=== PATIENT | female | born 1995 | race Caucasian/White ===

== ENCOUNTER 2020-02-01 20:12 | Day surgery (SDC) | payer BC ==
[2020-02-01 20:50] VITALS: BMI 36.3
[2020-02-01] MEDS ORDERED: hydrALAZINE 20 MG/ML VIAL SLOW IVP PRN (20:57)
[2020-02-01 21:19] LABS: Amnisure Test No Membranes Rupture (No Rupture)
[2020-02-01 21:20] LABS: Amnisure Internal Control QC ACCEPTABLE (ACCEPTABLE)
--- NOTE | 2020-02-01 21:26 | PDOC.BPN ---
- Brief Progress Note was negative
[2020-02-01 21:28] LABS: Hemoglobin 11.4 g/dL (12.0-16.0); Mean Corpuscular HGB CONC 33.5 g/dL (32.0-36.0); Mean Corpuscular Volume 86.4 fL (78.0-98.0); Mean Platelet Volume 8.7 fL (7.4-10.4); Platelet Count 212 thou/uL (130-400); RBC Distribution Width 12.2 % (11.5-14.5); Red Blood Cell (RBC) Count 3.94 mill/uL (4.20-5.40)
[2020-02-01 21:53] LABS: ALT (SGPT) 22 U/L (8-55); AST (SGOT) 21 U/L (5-34); Albumin 3.6 g/dL (3.5-5.0); Alkaline Phosphatase 144 U/L (40-110); Anion Gap 13 mmol/L (10-20); BUN (Urea Nitrogen) 5 mg/dL (7.0-18.7); Bilirubin, Total 0.2 mg/dL (0.2-1.2); Calc. Creatinine Clearance 227 mL/min (70-130); Calcium 9.1 mg/dL (7.8-10.44); Carbon Dioxide 23 mmol/L (22-29); Chloride 104 mmol/L (98-107); Estimated GFR-MDRD Greater than 90; Globulin 3.2 g/dL (2.4-3.5); Glucose 74 mg/dL (70-105); Potassium 3.5 mmol/L (3.5-5.1); Protein, Total 6.8 g/dL (6.0-8.3); Sodium 136 mmol/L (136-145)
--- NOTE | 2020-02-01 22:16 | HP ---
TIME OF EVALUATION: Roughly 21:05. LOCATION: Triage bed A. REASON FOR EVALUATION: Possible leakage of fluid versus other, ex-patient of Dr. Smatr. HISTORY OF PRESENT ILLNESS: In brief, this is a 24-year-old G1 at 34 weeks and 5 days with an EDC of March 11, 2020, who is here for possible "leakage of fluid" at about 10:30 this morning when she had a little bit of moisture on her underwear. She denies gush of fluid or persistent leakage. She also has good movement and denies vaginal bleeding or contractions. REVIEW OF SYSTEMS: Obtained prior to my visit by RN interview: Negative for fever, negative for COVID contacts, negative for trauma, negative for nausea or vomiting, negative for headache, visual changes, or right upper quadrant pain. PAST MEDICAL HISTORY: Negative. PAST SURGICAL HISTORY: Noncontributory. MEDICATIONS: None. ALLERGIES: "PENICILLIN, WHICH GIVES HER A RASH", BUT THIS WAS A CHILD. SOCIAL HISTORY: Negative per nurse interview. GYNECOLOGICAL HISTORY: Otherwise negative. OB HISTORY: She is a G1, P0, who follows Dr. Smart. SOCIAL HISTORY: Negative for alcohol, tobacco, or drug use. PHYSICAL EXAMINATION: VITAL SIGNS: She did have a blood pressure of 140s/90s, pulse is in the 80s, she is afebrile, and respirations are 18 and nonlabored. GENERAL: She is in no acute distress and oriented to time and place and person. ABDOMEN: Size consistent with dates. There is no gross evidence of leakage of fluid on perineal inspection or vaginal bleeding. I performed a sterile speculum examination after explaining to the patient the procedure and indication for an SSE. Prior to placing the speculum inside the vagina I did notice some thick yellow curd-like discharge at the introitus. I placed a speculum without gel into the vaginal area and confirmed thick white adherent discharge to the vaginal cox consistent with Eileen clinically. The cervix appeared closed on visual inspection. There was no leakage of fluid with Valsalva or with cough, confirming the absence of rupture of rupture of membranes. I did collect a VPIII to confirm the visual diagnosis of vaginal candidiasis. On external monitor, the heart tones were reviewed and were 130s to 140s and they were reactive. There are no contractions on tocodynamometer. ASSESSMENT: This is a 24-year-old G1 at 34 weeks and 5 days with possible leakage of fluid that is ruled out by clinical exam. She does have Eileen vaginalis and possible mild gestational hypertension. PLAN: 1. AmniSure sent to confirm absence of ruptured membranes. 2. Sterile spec is negative. 3. VPIII was sent and I recommended [id number] topical antifungal agents. 4. I did explain to her that her blood pressure was borderline, but per ACOG criteria, she does not require delivery unless severe. I did recommend she follow up with her next appointment, which is , for repeat blood pressure check. For now, we will await labs. Job ID: [id number]
== END 2020-02-01 22:18 | disposition home or self-care (01) ==
LOC: L&D/OP 20:12
PROVIDERS: ATTEND Obstetrics & Gynecology
DX: O98.813 Other maternal infectious and parasitic diseases complicating pregnancy, third trimester (principal); B37.3 Candidiasis of vulva and vagina; O23.593 Infection of other part of genital tract in pregnancy, third trimester; B96.89 Other specified bacterial agents as the cause of diseases classified elsewhere; Z3A.34 34 weeks gestation of pregnancy; Z88.0 Allergy status to penicillin
CPT/HCPCS: 36415; 80053; 84112; 85027; 87480; 87510; 87660; 99285

== ENCOUNTER 2020-03-01 09:57 | Inpatient (IN) | payer BC ==
[2020-03-01] MEDS ORDERED: CEFAZOLIN 2 GM in Premix Bag 1 BAG IVPB SCH (10:32)
[2020-03-01] MEDS ORDERED: Promethazine HCl 25 MG/ML VIAL IM PRN ×2 (10:32→13:49)
[2020-03-01] MEDS ORDERED: hydrALAZINE 20 MG/ML VIAL SLOW IVP PRN ×2 (10:32→13:56)
[2020-03-01] MEDS ORDERED: Bicitra 30 ML UDCUP PO SCH (10:32)
[2020-03-01] MEDS ORDERED: Ondansetron PF 4 MG/2 ML Vial IVP PRN ×3 (10:32→13:56)
[2020-03-01] MEDS ORDERED: Lactated Ringer's 1,000 ML IV SCH (10:32)
[2020-03-01] MEDS ORDERED: MORPHINE 5 MG/10 ML PF VIAL ONE (10:48)
[2020-03-01] MEDS ORDERED: Fentanyl 100 MCG/2 ML VIAL ONE (10:48)
[2020-03-01 10:49] VITALS: BMI 36.0
[2020-03-01] MEDS ORDERED: EPHEDRINE 25 MG/5 ML SYRINGE ONE (10:49)
[2020-03-01] MEDS ORDERED: Oxytocin 10 UNITS/ML VIAL ONE (10:49)
[2020-03-01] MEDS ORDERED: Ketorolac Tromethamine 30 MG/ML VIAL ONE (10:49)
[2020-03-01] MEDS ORDERED: PHENYLEPHRINE-NS 100 MCG/ML 10 ML SYRINGE ONE (10:49)
[2020-03-01] MEDS ORDERED: Ondansetron PF 4 MG/2 ML Vial ONE (10:49)
[2020-03-01 11:12] LABS: Hemoglobin 11.8 g/dL (12.0-16.0); Mean Corpuscular HGB CONC 34.1 g/dL (32.0-36.0); Mean Corpuscular Hemoglobin 29.2 pg (27.0-31.0); Mean Corpuscular Volume 85.7 fL (78.0-98.0); Platelet Count 200 thou/uL (130-400); RBC Distribution Width 12.5 % (11.5-14.5); Red Blood Cell (RBC) Count 4.02 mill/uL (4.20-5.40); White Blood Cell (WBC) Count 10.3 thou/uL (4.8-10.8)
[2020-03-01 11:55] LABS: Syphilis Antibody Nonreactive (Nonreactive); Syphilis Antibody Index 0.03 S/CO (<1.00 Non-Reactive)
[2020-03-01 11:56] LABS: HBSAg Index 0.23 S/CO (0-0.99); Hep B Surf Ag Non-Reactive S/CO (NonReactive)
[2020-03-01] MEDS ORDERED: Naloxone HCl 0.4 mg/ml Vial IV PRN (13:49)
[2020-03-01] MEDS ORDERED: Naloxone HCl 0.4 mg/ml Vial IVP PRN ×2 (13:49)
[2020-03-01] MEDS ORDERED: diphenhydrAMINE 50 MG/ML VIAL IVP PRN (13:49)
[2020-03-01] MEDS ORDERED: Promethazine HCl 25 MG SUPP PR PRN (13:49)
[2020-03-01] MEDS ORDERED: Misoprostol 200 MCG TAB PR PRN (13:56)
[2020-03-01] MEDS ORDERED: Lanolin Ointment 7 GM TUBE TOP PRN (13:56)
[2020-03-01] MEDS ORDERED: diphenhydrAMINE 25 MG CAP PO PRN (13:56)
[2020-03-01] MEDS ORDERED: Acetaminophen 325 MG TAB PO PRN (13:56)
[2020-03-01] MEDS ORDERED: Bisacodyl 10 MG SUPP PR PRN (13:56)
[2020-03-01] MEDS ORDERED: NS / Oxytocin 40 units/1000ml 1,000 ML IV SCH (14:00)
[2020-03-01] MEDS ORDERED: Communication Order-Pharmacy FS SCH (14:00)
[2020-03-01] MEDS ORDERED: HYDROmorphone 2 MG/ML VIAL SLOW IVP PRN (14:52)
[2020-03-01] MEDS ORDERED: L&D-Morphine 4 MG/ML VIAL SLOW IVP PRN (14:52)
[2020-03-01] MEDS ORDERED: Meperidine HCl/PF 25 MG/ML VIAL ONE (15:05)
[2020-03-01] MEDS ORDERED: Promethazine HCl 25 MG/ML VIAL ONE (15:15)
[2020-03-01] MEDS ORDERED: Misoprostol 200 MCG TAB ONE ×2 (15:47→15:57)
[2020-03-01] MEDS ORDERED: Adacel (T-DAP) 0.5 ML SYRINGE IM ONE (16:00)
[2020-03-01] MEDS: Lactated Ringer's 1,000 ML IV SCH ×2 (16:26→21:21)
[2020-03-01] MEDS: Ketorolac Tromethamine 30 MG/ML VIAL IVP PRN (20:27)
[2020-03-01] MEDS: Docusate Calcium (SURFAK) 240 MG CAP PO SCH (20:27)
[2020-03-01] MEDS: Ferrous Sulfate 325 MG TAB PO SCH (23:08)
[2020-03-02] MEDS ORDERED: Meperidine HCl/PF 25 MG/ML VIAL IM PRN (02:01)
[2020-03-02] MEDS ORDERED: Zolpidem Tartrate 5 MG TAB PO PRN (02:01)
[2020-03-02] MEDS: Ketorolac Tromethamine 30 MG/ML VIAL IVP PRN (03:39)
[2020-03-02] MEDS: HYDROcodone/Acetaminophen 5/325 mg Tablet PO PRN ×3 (03:40→20:02)
[2020-03-02 05:45] LABS: Hemoglobin 8.2 g/dL (12.0-16.0); Mean Corpuscular HGB CONC 33.6 g/dL (32.0-36.0); Mean Corpuscular Volume 86.4 fL (78.0-98.0); Mean Platelet Volume 8.4 fL (7.4-10.4); Platelet Count 135 thou/uL (130-400); RBC Distribution Width 12.5 % (11.5-14.5); Red Blood Cell (RBC) Count 2.81 mill/uL (4.20-5.40); White Blood Cell (WBC) Count 10.4 thou/uL (4.8-10.8)
[2020-03-02] MEDS: Lactated Ringer's 1,000 ML IV SCH ×3 (05:57→22:06)
[2020-03-02] MEDS: Ferrous Sulfate 325 MG TAB PO SCH ×2 (08:07→21:23)
[2020-03-02] MEDS: Docusate Calcium (SURFAK) 240 MG CAP PO SCH ×2 (08:07→21:24)
[2020-03-02] MEDS: Prenatal Vitamin 1 TAB PO SCH (08:07)
[2020-03-02] MEDS: Ibuprofen 800 MG TAB PO SCH ×2 (12:32→21:24)
--- NOTE | 2020-03-02 19:32 | OP ---
DATE OF PROCEDURE: 03/01/2020 RESIDENT SURGEON: Dona Hussein MD WET PROCESS MILLER HEAD ASSISTANT SURGEON: Jasmyn Walton. PREOPERATIVE DIAGNOSES: 1. Term intrauterine at 39 weeks. 2. Acosta breech presentation. POSTOPERATIVE DIAGNOSES: 1. Term intrauterine at 39 weeks. 2. Acosta breech presentation. PROCEDURE PERFORMED: Primary low transverse section. ANESTHESIA: Spinal catheterization. FINDINGS: 1. Persistent acosta breech presentation. 2. Vigorous male infant, 8 pounds 0 ounces, Apgars 8 and 9. 3. Normal uterus, tubes, and ovaries. COMPLICATIONS: None. SPECIMENS REMOVED: Cord blood. BLOOD LOSS: 600 mL. DESCRIPTION OF PROCEDURE: After thorough consent and counseling, Mrs. Sloan was taken to the operating room and adequate level of anesthesia was obtained via spinal catheterization. The patient was prepped and draped in usual sterile fashion for abdominal surgery. A Flores was placed in the bladder, which was noted to be draining clear urine. A team time-out was performed. Attention was then turned to performing the primary low-transverse section secondary to breech presentation. A Pfannenstiel incision was made, carried sharply to the fascia, which was also sharply incised. The midline was identified. The rectus muscles were retracted laterally. The abdominal peritoneal cavity was entered with usual safeguards carried out. A retractor was placed, and a bladder flap was created on the vesicouterine peritoneum. A bladder blade was then placed. A low-transverse incision was made on the well-developed lower uterine segment. Upon entering the amniotic sac, a small amount of clear amniotic fluid was visualized. The infant was noted to be acosta breech presentation. The breech was carefully delivered in an atraumatic fashion. Using the Mauriceau maneuver, shoulders and after coming head were then delivered in an atraumatic fashion. The cord was doubly clamped and cut. The infant was handed to the pediatric team in attendance for the delivery. The infant was a vigorous viable male, weighing 8 pounds 0 ounces with Apgars of 8 and 9 obtained at one and five minutes respectively. Cord blood was obtained. The placenta was manually removed from the uterus. The uterus was exteriorized, and good tone was noted. The uterine cavity was cleared of any remaining clot and fluid. The low-transverse incision was closed in a running locking ligature of #1 chromic. A second imbricating layer was placed to facilitate strength and hemostasis. The vesicouterine peritoneum was reapproximated to the lower segment with a running ligature of 2-0 Monocryl suture. Good tone and hemostasis were once again appreciated. The posterior cul-de-sac and gutters were cleared of clot and fluid. The uterus was returned to the abdomen, and good tone and hemostasis were again noted. Lap, sponge, and needle counts were correct. The peritoneum was then closed with a running ligature of 2-0 Vicryl suture. The rectus muscles were reapproximated in the midline with interrupted ligatures of 2-0 Vicryl suture. The fascia was closed with two ligatures of 0 Vicryl suture, which were tied in the midline. Good fascial integrity was noted. The incision was irrigated with copious amount of warm normal saline. The subcutaneous tissue was closed with interrupted ligatures of 2-0 plain. The skin was closed with a subcuticular stitch of 4-0 Monocryl and dressed with Dermabond. A pressure dressing and ice packs were subsequently placed. Lap, sponge, and needle counts were correct x3. Estimated blood loss during the surgical procedure was approximately 600 mL. Team debriefing was performed. The patient was returned to recovery room in good condition. Immediately following surgery, the baby was returned to the mother for [id number] contact and feeding. The patient and her were made aware of the surgical findings, and questions were answered to their satisfaction. Job ID: [id number]
[2020-03-02] MEDS: Simethicone Chewable 80 MG TAB PO PRN (20:05)
[2020-03-03] MEDS: HYDROcodone/Acetaminophen 5/325 mg Tablet PO PRN ×2 (02:59→10:51)
[2020-03-03] MEDS: Simethicone Chewable 80 MG TAB PO PRN (03:00)
[2020-03-03] MEDS: Lactated Ringer's 1,000 ML IV SCH (05:43)
[2020-03-03] MEDS: Ibuprofen 800 MG TAB PO SCH (05:47)
[2020-03-03 08:43] VITALS: BP 121/69; TEMP 98.3
[2020-03-03] MEDS: Prenatal Vitamin 1 TAB PO SCH (09:14)
[2020-03-03] MEDS: Docusate Calcium (SURFAK) 240 MG CAP PO SCH (09:14)
[2020-03-03] MEDS: Ferrous Sulfate 325 MG TAB PO SCH (09:15)
--- NOTE | 2020-03-06 08:01 | PQF ---
CLINICAL DOCUMENTATION CLARIFICATION FORM: Dear : Aniceto Smart Date / Time: 03/06/2020 08:00 Please exercise your independent, professional judgment in responding to the clarification form. Clinical indicators are provided on the bottom of this form for your review Can you please clarify the diagnosis being treated? Please check appropriate box(es): [ x ] Associated Diagnosis: Acute blood loss anemia [ ] Not clinically significant laboratory findings [ x ] Other diagnosis ___BREECH [ ] Unable to determine In addition, please specify: Present on Admission (POA): [x ] Yes [ ] No [ ] Unable to determine Physician Signature: Date/Time: For continuity of documentation, please document condition throughout progress notes and discharge summary. Thank You. To be completed by CDI/Coding staff for physician review: Present Clinical Indicators - Signs / Symptoms / Labs Results and Location in Medical Record [x] RBC: 03/01=4.02 03/02=2.81 Labs 03/01 [x] Hgb: 03/01=11.8 03/02=8.2 Labs 03/01 [x] Hct: 03/01=34.5 03/02=24.3 Labs 03/01 [x] Estimated blood loss: 600ml OP Note 03/01 [x] BA=737/54 Vital Signs 03/02 Present Risk Factors Results and Location in Medical Record [x] 39 weeks gestation OP Note 03/01 [x] s/p CS delivery OP Note 03/01 Present Treatments Results and Location in Medical Record [x] Laboratory Monitoring Labs 03/01 [x] IVF SEP 05 [x] Ferrous Sulfate 325mg Oral SEP 05 CDS/Kiln Fireman Signature:Sherrill Victoria Phone #: [phone] Date/Time: 03/06/2020 08:00 This is a permanent part of the Medical Record [facility]
== END 2020-03-03 12:20 | disposition home or self-care (01) | DRG 787 ==
LOC: L&D/OP 09:57 → L&D 10:01 → 3SW 16:40
PROVIDERS: ADMIT Obstetrics & Gynecology; ATTEND Obstetrics & Gynecology
PROC: 10D00Z1 Extraction of Products of Conception, Low, Open Approach (ICD-10-PCS; principal; 2020-03-01)
DX: O32.1XX0 Maternal care for breech presentation, not applicable or unspecified (principal); D62 Acute posthemorrhagic anemia; O13.4 Gestational [pregnancy-induced] hypertension without significant proteinuria, complicating childbirth; Z3A.39 39 weeks gestation of pregnancy; Z37.0 Single live birth; O99.824 Streptococcus B carrier state complicating childbirth; O90.81 Anemia of the puerperium
CPT/HCPCS: 36415; 51702; 85027; 86780; 86850; 86900; 86901; 87340; J0690; J1885; J2175; J2274; J2405; J2550; J2590; J3010; Q0163